=== PATIENT | male | born 2000 | race Caucasian/White ===

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

== ENCOUNTER 2021-06-04 18:28 | Outpatient (REF) | payer BC, SELFPAY ==
[2021-06-05 23:48] LABS: Campylobacter PCR Negative (Negative); Salmonella PCR Negative (Negative); Shiga Toxin PCR Negative (Negative); Shigella/Enteroinvasive Ecoli Negative (Negative)
== END 2021-06-04 18:29 | disposition home or self-care (01) ==
LOC: LBN 18:28
PROVIDERS: Visit Provider Physician Assistant Medical
DX: R19.7 Diarrhea, unspecified (principal)
CPT/HCPCS: 87329; 87505; 87177

== ENCOUNTER 2022-02-24 19:03 | Emergency (ER) | payer BC, SELFPAY ==
[2022-02-24 19:05] VITALS: BP 116/73; PULSE 77; RESP 16; TEMP 36.7; O2SAT 97
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
== END 2022-02-24 19:45 | disposition home or self-care (01) ==
LOC: ER 19:44
PROVIDERS: Emergency Provider Student in an Organized Health Care Education/Training Program
DX: S61.012A Laceration without foreign body of left thumb without damage to nail, initial encounter (principal); W26.8XXA Contact with other sharp object(s), not elsewhere classified, initial encounter
CPT/HCPCS: 12002

== ENCOUNTER 2024-06-01 20:17 | Emergency (ER) | payer BC, SELFPAY ==
--- NOTE | 2024-06-01 20:15 | DI.CT_ITS ---
Exam(s) CT CHEST/ABD/PEL W EXAM: CT CHEST/ABD/PEL W CLINICAL HISTORY: [facility]. TECHNIQUE: Imaging Protocol: Axial computed tomography images with coronal and sagittal reformatted images were created and reviewed CONTRAST MATERIAL: Intravenous: Omnipaque 350 Contrast volume:100 ml Oral: None COMPARISON: No exams were available for comparison FINDINGS: CHEST: LUNGS: No evidence of lung contusion, infiltrates, pleural effusions nor pneumothorax. Incidentally noted is a 4 mm noncalcified nodule in the lateral segment of the right middle lobe. No nodules in t he left lung. MEDIASTINUM: No evidence of sternal fracture or mediastinal hematoma. No incidental hilar nor medias tinal adenopathy. Density anterior mediastinal fat is consistent with remnant thymus in this age che[place] up. Partially visualized thyroid appears unremarkable. CARDIAC: Heart size is normal. There is no pericardial effusion.Thoracic aorta appears unremarkable. OSSEOUS: No rib nor clavicular fractures. No scapular fractures. No vertebral fractures.. ABDOMEN: There is no ascites. No evidence of mesenteric nor abdominal wall hematoma. No free air. No bowel obstruction. LIVER: Intact. No lacerations nor other significant focal findings. GALLBLADDER/BILIARY: No obvious gallbladder pathology. CBD is not dilated. PANCREAS: No evidence of pancreatic mass nor dilatation of the pancreatic duct. SPLEEN: Upper normal size. No lacerations. No lesions. Splenic and portal veins are patent. ADRENALS: No evidence of adrenal hemorrhage nor masses. KIDNEYS: No kidney lacerations nor subcapsular hematomas.. No cysts nor solid masses. No calculi. No hydronephrosis. ABDOMINAL AORTA: Unremarkable. No lacerations. No aneurysms. No hematomas. Aortoiliac segments al so unremarkable. LYMPH NODES: There is no retroperitoneal nor paraaortic adenopathy. ABDOMINAL WALL: No evidence of significant anterior abdominal wall nor inguinal hernia. GI: No significant findings. PELVIS: LYMPH NODES: There is no intrapelvic nor inguinal adenopathy. GI: No evidence of appendicitis.No evidence of sigmoid diverticulitis. URINARY BLADDER: Intact. No intraluminal clots. No perivesicular streaking. REPRODUCTIVE: Prostate size normal. Seminal vesicles unremarkable. OSSEOUS: No pelvic nor hip fractures. Sacroiliac joints unremarkable. Lumbar vertebrae unremarkable . IMPRESSION: 1. No significant acute trauma sequelae in the chest, abdomen, and pelvis Report called by myself to ER provider 06/01/2024 at 9:31 p.m. RADIATION DOSE DELIVERED: 1,051.87mGy.cm Total DLP DATA REPOSITORY: All CT scans at this facility are submitted to the National Radiology Data Registry (NRDR) Dose Index Registry (DIR) with the [employer] (ACR). RADIATION OPTIMIZATION: All CT scans at this facility use at least one of these dose optimization te chniques: automated exposure control; mA and/or kV adjustment per patient size (includes targeted exa ms where dose is matched to clinical indication); or iterative reconstruction.
--- NOTE | 2024-06-01 20:15 | DI.CT_ITS ---
Exam(s) CT HEAD CERVICAL SPINE WO EXAM: CT HEAD CERVICAL SPINE WO CLINICAL HISTORY: [facility]. TECHNIQUE: Imaging Protocol: Axial computed tomography images with coronal and sagittal reformatted images were created and reviewed COMPARISON: No exams were available for comparison FINDINGS: BRAIN: There are no skull fractures. There is mucosal thickening and some fluid noted in both maxillary sin uses. No orbital blowout fractures. Other paranasal sinuses and mastoid air cells are clear. There is no evidence of intracranial hemorrhage, mass effect, or shift of midline structures. There are no extra-axial fluid collections. The ventricles are not enlarged or shifted and there is no blo od within the ventricular system nor within the basal cisterns. CERVICAL SPINE: There is no evidence of fracture nor listhesis. No significant prevertebral soft tissue swelling. No significant disc space narrowing. Facet joints appear unremarkable. Spinous process is unremarkable. There is no significant facet joint malalignment. No significant osseous lesions evident. IMPRESSION: No acute intracranial findings on this noninfused CT scan of the brain. No evidence of cervical spine fracture, malalignment, nor acute compromise of the cervical spinal can al. Called by myself to ER provider 06/01/2024 at 9:16 p.m. RADIATION DOSE DELIVERED: 1,237.38mGy.cm Total DLP DATA REPOSITORY: All CT scans at this facility are submitted to the National Radiology Data Registry (NRDR) Dose Index Registry (DIR) with the [employer] (ACR). RADIATION OPTIMIZATION: All CT scans at this facility use at least one of these dose optimization te chniques: automated exposure control; mA and/or kV adjustment per patient size (includes targeted exa ms where dose is matched to clinical indication); or iterative reconstruction.
[2024-06-01 20:20] VITALS: BP 117/67; PULSE 63; RESP 20; O2SAT 98
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
--- NOTE | 2024-06-01 20:32 | DI.CT_ITS ---
Exam(s) CT THORACIC LUMBAR SPINE REC EXAM: CT THORACIC LUMBAR SPINE REC CLINICAL HISTORY: [facility] TECHNIQUE: COMPARISON: CT CT CHEST/ABD/PEL W from 06/01/2024 FINDINGS: THORACIC SPINAL COLUMN: No evidence of fracture or listhesis nor significant disc space narrowing. F acet joints unremarkable. No scoliosis. No incidental osseous lesions. LUMBOSACRAL SPINAL COLUMN: No evidence of fracture nor listhesis. Transverse process is are intact. Disc spaces normal. Facet joints unremarkable. No scoliosis. Sacroiliac joints appear unremarkabl e. No sacral fractures evident. IMPRESSION: No acute osseous findings in the thoracic and lumbosacral spinal columns. Called by myself to ER provider 06/01/2024 at 9:21 p.m.
[2024-06-01 20:46] LABS: Abs Immature Grans 0.04 10^3/uL (0.0-0.06); Absolute Basophil Count 0.05 10^3/uL (0.0-0.2); Absolute Eosinophil Count 0.03 10^3/uL (0.0-0.7); Absolute Lymphocyte Count 1.45 10^3/uL (1.2-3.4); Absolute Monocyte Count 1.67 10^3/uL (0.1-0.8); Absolute Neutrophil Count 10.03 10^3/uL (1.2-6.7); Basophils % 0.4 %; Eosinophils % 0.2 %; HCT 45.4 % (40.0-50.0); HGB 15.2 g/dL (13.5-17.5); Immature Grans % 0.3 %; Lymphocytes % 10.9 %; MCH 30.5 pg (27.0-33.0); MCHC 33.5 % (32.0-36.0); MCV 91 fL (80-95); MPV 10.4 fL (8.0-11.0); Monocytes % 12.6 %; Neutrophils % 75.6 %; Platelet Count 245 10^3/uL (130-400); RBC 4.99 10^6/uL (4.36-5.78); RDW 12.5 % (11.8-14.1); RDW-SD 41.3 fL; WBC 13.27 10^3/uL (4.4-10.8)
[2024-06-01 21:02] LABS: Diff Comment Agrees w/ Instrument; RBC Morphology Normal
[2024-06-01] MEDS: Omnipaque 350 MG/ML 100 ML BTL IJ (21:04)
[2024-06-01] MEDS: Normal Saline - Diluent 50 ML VIAL IJ (21:05)
[2024-06-01 21:07] LABS: ALT 34 U/L (16-63); AST 22 U/L (15-37); Albumin 4.2 g/dL (3.4-5.0); Alkaline Phosphatase 88 U/L (46-116); Anion Gap 11.2 mmol/L (3-11); BUN 18 mg/dL (7-18); Bilirubin, Total 0.7 mg/dL (0.2-1.0); CO2 25.8 mmol/L (21.0-32.0); CREATININE 1.2 mg/dL (0.70-1.30); Calcium 9.4 mg/dL (8.5-10.1); Chloride 101 mmol/L (98-107); Estimated GFR 87.69 (mL/min/1.73m2); Glucose 107 mg/dL (74-106); Potassium 3.5 mmol/L (3.5-5.1); Sodium 138 mmol/L (136-145); Total Protein 7.9 g/dL (6.4-8.2)
[2024-06-01] MEDS: Diph,Pertuss(Acell),Tet Vac/Pf 0.5 ML SYR IM (21:09)
[2024-06-01 21:33] LABS: Bilirubin Negative (Negative); Blood Negative (Negative); Clarity Clear (Clear); Glucose Negative (Negative); Ketones 15 mg/dL (Negative); Leukocyte Esterase Negative (Negative); Nitrite Negative (Negative); Specific Gravity <= 1.005 (1.005-1.025); Urobilinogen 0.2 mg/dL (Up to 0.2); pH 5.5 (5-8)
== END 2024-06-01 21:56 | disposition home or self-care (01) ==
PROVIDERS: Emergency Provider Emergency Medicine Emergency Medical Services
DX: S06.0X0A Concussion without loss of consciousness, initial encounter (principal); S13.4XXA Sprain of ligaments of cervical spine, initial encounter; S40.211A Abrasion of right shoulder, initial encounter; S20.412A Abrasion of left back wall of thorax, initial encounter; S20.411A Abrasion of right back wall of thorax, initial encounter; Z23 Encounter for immunization; V28.49XA Other motorcycle driver injured in noncollision transport accident in traffic accident, initial encounter; Y92.488 Other paved roadways as the place of occurrence of the external cause
CPT/HCPCS: 36415; 74177; 80053; 90471; 90715; 99285; 70450; 71260; 72125; 81003; 85025; J3490